=== PATIENT | male | born 1980 | race Caucasian/White ===

== ENCOUNTER 2019-11-11 14:12 | Inpatient (IN) | payer OTHER ==
[~2019-11-11] VITALS: Ht 195.5 cm; Wt 94.8 kg
[2019-11-11 16:00] VITALS: BP 125/70
--- NOTE | 2019-11-11 16:00 | NUR ---
Time: 1599 A 39 year old male admitted to under services of JOANNA RODRÍGUEZ DO. Pt. arrived via ambulatory from [place]. Chief complaint: here for medical stabilization for opiate withdrawal. ANALY PILLAI
--- NOTE | 2019-11-11 16:13 | NUR ---
PATIENT MEETS [facility]. CINA=19. PATIENT IS WANTING RESIDENTIAL TREATMENT AT [facility] FOR HIS AFTERCARE PLAN. RUBIN SOTO B.A. ALLOPATHIC DOCTOR
[2019-11-11] MEDS ORDERED: METHADONE HYDRO10 MG PO (16:19)
--- NOTE | 2019-11-11 16:23 | NUR ---
DR. Walsh notified that pt is in room. Notified that pt goes to a methadone clinic but has not had it for a week due to not having a ride to get there. States yesterday he took heroin and crack due to not having methadone. States he takes methdone 105 mg daily. Related this to Dr. Walsh.
[2019-11-11 17:03] LABS: BASO % 0.4 % (0.0-1.0); EOS # 0.1 10*3/uL (0.0-0.4); EOS % 0.6 % (1.0-4.0); HEMATOCRIT 44.7 % (42.0-52.0); HEMOGLOBIN 14.8 g/dl (14.0-18.0); LYMPH # 1.6 10*3/uL (1.3-4.4); LYMPH % 19.1 % (27.0-41.0); MEAN CORPUSCULAR HGB 30.5 pg (27.0-31.0); MEAN CORPUSCULAR HGB CONC 33.1 g/dl (33.0-37.0); MEAN PLATELET VOLUME 11.6 fl (9.6-12.3); MONO # 0.5 10*3/uL (0.1-1.0); MONO % 6.1 % (3.0-9.0); NEUT # 6.3 10*3/uL (2.3-7.9); NEUT % 73.6 % (47.0-73.0); PLATELET COUNT AUTOMATED 201 10*3/uL (130-400); RED BLOOD COUNT 4.86 10*6/uL (4.50-5.90); RED CELL DISTRI WIDTH 12.6 % (0-14.5); WHITE BLOOD COUNT 8.5 10*3/uL (4.8-10.8)
[2019-11-11 17:13] LABS: INTERNATIONAL NORM RATIO 0.9 (2.0-3.5)
--- NOTE | 2019-11-11 17:15 | NUR ---
Medicated with vistaril, robaxin, requip, and zofran per prn order for s/s of withdrawal. Nicotrol inhaler given to pt as well and explained use. Verbalized understanding.
[2019-11-11 17:18] LABS: ALBUMIN 3.8 gm/dl (3.1-4.5); ALKALINE PHOSPHATASE 77 U/L (45-117); BUN 17 mg/dl (7-24); CHLORIDE 106 mmol/L (98-107); CREATININE 1.13 mg/dL (0.70-1.30); SGOT/AST 21 IU/L (3-35); SGPT/ALT 37 U/L (12-78); SODIUM 140 mmol/L (136-145); TOTAL PROTEIN 7.5 gm/dL (6.4-8.2)
[2019-11-11 17:21] LABS: BILIRUBIN NEGATIVE (NEGATIVE); BLOOD NEGATIVE (NEGATIVE); CLARITY CLEAR (CLEAR); COLOR YELLOW (YELLOW); GLUCOSE NEGATIVE (NEGATIVE); KETONE 3+ (NEGATIVE); LEUKO ESTERASE NEGATIVE (NEGATIVE); NITRITE NEGATIVE (NEGATIVE); UROBILINOGEN 0.2 E.U./dl (0.2-1.0)
[2019-11-11 17:22] LABS: ETHYL ALCOHOL < 3.0 mg/dl (<3)
[2019-11-11 17:27] LABS: BACTERIA TRACE; EPITHELIAL CELLS 0-2; MUCOUS 2+; RBC 0-2 rbc/hpf (0-2); URINE AMPHETAMINES < 1000 (1000ng/ml); URINE BARBITURATES < 200 (200ng/ml); URINE BENZODIAZEPINES < 200 (200ng/ml); URINE CANNABINOIDS (THC) < 50 (50ng/ml); URINE COCAINE > 300 (300ng/ml); URINE METHADONE > 300 (300ng/ml); URINE OPIATES < 300 (300ng/ml)
[2019-11-11 17:35] LABS: URINE PHENCYCLIDINE < 25 (25ng/ml)
--- NOTE | 2019-11-11 18:00 | NUR ---
States medications helped somewhat.
[2019-11-11 20:00] VITALS: BP 118/63
[2019-11-12] VITALS: BP 119/69
[2019-11-12 12:00] VITALS: BP 120/70
--- NOTE | 2019-11-12 14:36 | NUR ---
PATIENT WANTS TO FOLLOW UP WITH [facility] FOR RESIDENTIAL TREATMENT. [place] STAFF SENT ASSESSMENT TO BE REVIEWED. [place] STAFF WILL FOLLOW BACK UP WITH HIS AFTERCARE PLAN. RUBIN SOTO B.A. GUIDE DOMESTIC TOUR
[2019-11-12 16:00] VITALS: BP 117/70
[2019-11-12 20:00] VITALS: BP 113/71
[2019-11-13] VITALS: BP 107/58
--- NOTE | 2019-11-13 03:10 | NUR ---
24 HR chart check completed.
[2019-11-13 08:00] VITALS: BP 114/68
[2019-11-13 16:00] VITALS: BP 113/68
--- NOTE | 2019-11-13 16:00 | NUR ---
PATIENT WAS NOT ACCEPTED TO [facility], HOWEVER PATIENT WAS ACCEPTED TO [facility]. THEY WILL PROVIDE TRANSPORTATION ONCE PATIENT IS DISCHARGED FROM [facility]. PATIENT AGREES AND UNDERSTANDS HIS AFTERCARE PLAN. RUBIN SOTO B.A. MOLECULAR TECHNOLOGIST
[2019-11-13 20:00] VITALS: BP 118/68
[2019-11-14] VITALS: BP 123/70
[2019-11-14 08:00] VITALS: BP 114/70
[2019-11-14 08:37] LABS: BASO % 0.5 % (0.0-1.0); EOS # 0.2 10*3/uL (0.0-0.4); EOS % 2.6 % (1.0-4.0); HEMATOCRIT 44.9 % (42.0-52.0); LYMPH # 1.9 10*3/uL (1.3-4.4); LYMPH % 26.3 % (27.0-41.0); MEAN CELL VOLUME 90.5 fl (80.0-94.0); MEAN CORPUSCULAR HGB 30.2 pg (27.0-31.0); MEAN CORPUSCULAR HGB CONC 33.4 g/dl (33.0-37.0); MEAN PLATELET VOLUME 11.8 fl (9.6-12.3); MONO # 0.5 10*3/uL (0.1-1.0); MONO % 7.3 % (3.0-9.0); NEUT # 4.7 10*3/uL (2.3-7.9); NEUT % 63.2 % (47.0-73.0); PLATELET COUNT AUTOMATED 188 10*3/uL (130-400); RED BLOOD COUNT 4.96 10*6/uL (4.50-5.90); RED CELL DISTRI WIDTH 12.7 % (0-14.5); WHITE BLOOD COUNT 7.4 10*3/uL (4.8-10.8)
[2019-11-14 09:00] LABS: CREATININE 1.09 mg/dL (0.70-1.30)
[2019-11-14] MEDS ORDERED: ATARAX,VISTARIL50 MG PO (11:03)
[2019-11-14] MEDS ORDERED: METHOCARBAMOL750 M1 PO (11:03)
--- NOTE | 2019-11-14 12:16 | NUR ---
Discharge instructions reviewed with patient/family. Patient receptive and verbalizes understanding. Follow-up care arranged. Written instructions given to patient/family. TY CLARK
== END 2019-11-14 12:16 | disposition home or self-care (01) | DRG 773 ==
LOC: 4E 14:12
PROVIDERS: Internal Medicine; ADMIT Internal Medicine
DX: F11.23 Opioid dependence with withdrawal (principal); F14.10 Cocaine abuse, uncomplicated; F17.210 Nicotine dependence, cigarettes, uncomplicated; Z71.6 Tobacco abuse counseling; Z90.49 Acquired absence of other specified parts of digestive tract; Z82.49 Family history of ischemic heart disease and other diseases of the circulatory system; Z80.6 Family history of leukemia; Z79.899 Other long term (current) drug therapy

== ENCOUNTER 2019-11-14 16:17 | Emergency (ER) | payer OTHER ==
[~2019-11-14] VITALS: Ht 195.5 cm; Wt 127.0 kg
[~2019-11-14 16:17] MED LIST: ATARAX,VISTARIL50 MG PO; METHADONE HYDRO10 MG PO; METHOCARBAMOL750 M1 PO
== END 2019-11-14 19:04 ==
LOC: ED 16:17
DX: F11.23 Opioid dependence with withdrawal (principal); F14.10 Cocaine abuse, uncomplicated; F17.210 Nicotine dependence, cigarettes, uncomplicated; R25.1 Tremor, unspecified; R61 Generalized hyperhidrosis; R25.2 Cramp and spasm; Z86.73 Personal history of transient ischemic attack (TIA), and cerebral infarction without residual deficits; Z90.49 Acquired absence of other specified parts of digestive tract

== ENCOUNTER 2019-11-15 13:08 | Emergency (ER) | payer OTHER ==
[~2019-11-15] VITALS: Ht 195.5 cm; Wt 127.0 kg
== END 2019-11-15 14:02 | disposition home or self-care (01) ==
LOC: ED 13:08
DX: F11.23 Opioid dependence with withdrawal (principal); R45.1 Restlessness and agitation; F14.10 Cocaine abuse, uncomplicated; F17.210 Nicotine dependence, cigarettes, uncomplicated; Z90.49 Acquired absence of other specified parts of digestive tract; Z79.899 Other long term (current) drug therapy